=== PATIENT | female | born 1970 | race American Indian/Alaskan Native ===

== ENCOUNTER 2020-11-26 11:07 | Emergency (ER) | payer OTHER ==
[~2020-11-26] VITALS: Ht 157.5 cm; Wt 73.0 kg
[~2020-11-26 11:07] MED LIST: CITRUCEL479 GM PO; HYDROCODON-ACE1 EA10 PO; IBUPROFEN200 M1 PO; LORATADINE10 MG PO; MIRENA1 EACH IY; NORCO 5-325 TA1 EACH PO
[2020-11-26] MEDS ORDERED: LISINOPRIL10 MG PO (15:22)
== END 2020-11-26 15:40 | disposition home or self-care (01) ==
LOC: ED 11:07
DX: I10 Essential (primary) hypertension (principal); Z87.891 Personal history of nicotine dependence
CPT/HCPCS: 80053; 85025; 99284